=== PATIENT | female | born 1945 | race Caucasian/White ===

== ENCOUNTER 2016-04-30 19:59 | Emergency (ER) | payer OTHER ==
--- NOTE | ~2016-04-30 | CT4 ---
[facility] A Service [facility] RADIOLOGY TEXT RESULTS PATIENT: MICHELL DANG LOCATION: SED : 46 UNIT #: [id number] AGE: [address]: Nick Finnegan MD SEX: F ORDER DR: [id number] [address] [address] [id number] E MR#: [id number] Acc #: [id number] NAME: MICHELL DANG : 1945 SEX: F STUDY DATE/TIME: 04/30/2016 19:35 UNIT: SED ROOM: STUDY DESCRIPTION: CT Abd and Pelv Wo Cont Attending Physician: Nick Finnegan M.D. Ordering Physician: Marguerite Tatum M.D. Primary Care Physician: Chen Oliver M.D. MEDICAL IMAGING REPORT This report is preliminary unless electronic signature is present. EXAM CT abdomen and pelvis without contrast, 04/30/2016 HISTORY Right-side abdomen pain for 4 days. Nausea and vomiting. TECHNIQUE This CT exam was performed with one or more of the following radiation dose reduction techniques: automatic exposure control, adjustment of mA and/or kV according to patient size, and iterative reconstruction. FINDINGS CT abdomen and pelvis was performed without contrast. CT ABDOMEN: There is a large hiatal hernia with the majority of the stomach above the diaphragm. Bilateral adrenal adenomas measuring 1.1 cm x 0.9 on the right and 1.6 cm x 1.4 cm on the left. The liver, spleen, pancreas, and right kidney are unremarkable. Incidental approximately 1 cm cyst in the anterior mid-left kidney. Cholecystectomy. No bowel obstruction. No urinary obstruction. CT PELVIS: Hysterectomy. No pelvic mass or fluid collection. No bowel dilatation. Urinary bladder is normal. IMPRESSION 1. Large hiatal hernia with the majority of the stomach above the diaphragm. 2. No bowel obstruction or urinary obstruction. 3. Incidental bilateral adrenal adenomas measuring 1.1 cm in maximal dimension on the right and 2.4 cm on the left. 4. Normal appendix. [facility] A Service [facility] RADIOLOGY TEXT RESULTS PATIENT: MICHELL DANG LOCATION: [facility] : 46 UNIT #: [id number] AGE: [address]: Nick Finnegan MD SEX: F ORDER DR: Dictated by... Lawson Painter M.D. THIS IS AN ELECTRONICALLY VERIFIED REPORT Lawson Painter M.D. at 05/02/2016 12:26 PM ROSA/laci TD: 05/02/2016 01:45 JOB #: [id number] MEDICAL IMAGING REPORT
[2016-04-30 19:13] LABS: BASOPHIL% 0.5 % (0-2.5); EOSINOPHIL# 0.1 X10e3 (0-0.7); EOSINOPHIL% 1.5 % (0.0-7.0); HEMATOCRIT 45.8 % (35.0-45.0); HEMOGLOBIN 15.3 gm/dL (12.0-16.0); LYMPHOCYTE# 2.8 X10e3 (1.0-3.5); LYMPHOCYTE% 33.5 % (17.0-45.0); MEAN CELL VOLUME 89.8 FL (83-96); MEAN CORPUSCULAR HEMOGLOBIN 29.9 PG (28-34); MEAN CORPUSCULAR HGB CONC 33.3 g/dL (30-36); MEAN PLATELET VOLUME 8.1 FL (6.5-11.5); MONOCYTE# 0.4 X10e3 (0-1.0); MONOCYTE% 4.5 % (3.0-12.0); PLATELET COUNT 307 X10e3 (140-420); RED CELL DISTRIBUTION WIDTH 14.8 % (11.0-15.5); WHITE BLOOD COUNT 8.3 X10e3 (4.0-10.5)
[2016-04-30 19:14] LABS: DIFF IND NO
[2016-04-30 19:31] LABS: ALBUMIN SERUM 4.6 g/dL (3.5-5.0); ALKALINE PHOSPHATASE 66 U/L (32-92); ALT (SGPT) 16 U/L (10-40); AMYLASE 13 U/L (0-46); AST (SGOT) 25 U/L (10-42); BILIRUBIN, DIRECT <0.1 mg/dL (0.0-0.2); BILIRUBIN,INDIRECT 0.5 mg/dL (0.0-0.9); BILIRUBIN,TOTAL 0.6 mg/dL (0.2-2.0); BLOOD UREA NITROGEN 9 mg/dL (9-23); CALCIUM SERUM 9.6 mg/dL (8.4-10.2); CARBON DIOXIDE 29 mmol/L (22-31); CHLORIDE 102 mmol/L (100-111); GLOM FILT RATE Estimated 58.4 mL/min (>60); GLUCOSE FASTING 106 mg/dL (70-110); LIPASE 27 U/L (22-51); POTASSIUM 3.3 mmol/L (3.5-5.1); SODIUM 140 mmol/L (135-145)
[2016-04-30 19:33] LABS: URINE APPEARANCE CLEAR; URINE BILIRUBIN NEG (NEG); URINE BLOOD TRACE-INTACT (NEG); URINE COLOR YELLOW; URINE GLUCOSE NEG (NORM); URINE KETONE NEG (NEG); URINE LEUKOCYTE ESTERASE NEG (NEG); URINE NITRATE NEG (NEG); URINE PROTEIN NEG (NEG); URINE UROBILINOGEN 0.2 MG/DL (NORM)
[2016-04-30 19:34] LABS: MICRO INDICATED? YES; URINE SOURCE CLEAN CATCH
[2016-04-30 19:36] LABS: CULTURE INDICATED? NO; URINE BACTERIA NEG (NEG); URINE SQUAMOUS EPITHELIAL CELL OCCAS /[HPF]; URINE TRANSITIONAL EPI CELLS FEW /[HPF]; URINE WBC 0-2 /[HPF] (0-5)
[2016-04-30 19:37] LABS: URINE MUCUS PRESENT
[~2016-04-30 19:59] MED LIST: ALBUTEROL17 GM INH; BENZONATATE PO; COMPAZINE10 MG PR; COREG PO; CRESTOR PO; DEPAKOTE PO; DESYREL50 MG PO; FAMOTIDINE PO; GLUCOPHAGE500 MG PO; GUAIFENESIN LA600 M1 PO; MOTRIN400 M1 PO; OMEPRAZOLE20 M1 PO; PREDNISONE PO; RISPERIDONE PO; ROBITUSSIN100 MG/51 PO; SAPHRIS5 MG SL; SYMBICORT INH; SYNTHROID0.05 MG PO; ULTRAM PO; VIBRAMYCIN100 M1 PO; VITAMIN D 4001 UDTAB PO; ZESTORETIC 20/11 TA1 PO; ZESTORETIC 20/11 TAB PO; ZETIA PO; ZITHROMAX500 MG PO
== END 2016-04-30 20:43 | disposition home or self-care (01) ==
LOC: SED 19:59
PROVIDERS: Emergency Medicine; Student in an Organized Health Care Education/Training Program
DX: R10.9 Unspecified abdominal pain (principal); E11.9 Type 2 diabetes mellitus without complications; I10 Essential (primary) hypertension; Z90.710 Acquired absence of both cervix and uterus; Z88.0 Allergy status to penicillin; Z88.8 Allergy status to other drugs, medicaments and biological substances; F17.200 Nicotine dependence, unspecified, uncomplicated
CPT/HCPCS: 36415; 74176; 80048; 80076; 81003; 82150; 83690; 85025; 96361; 96374; 96375; 99284; C9113; J2270; J2405

== ENCOUNTER 2016-06-06 19:25 | Inpatient (IN) | payer OTHER ==
--- NOTE | ~2016-06-06 | HP ---
Unit #: [id number] #: [id number] Patient: MICHELL DANG [id number] [facility] [address] [place], [place] [address] [id number] E MR#: [id number] NAME: MICHELL DANG ROOM: Age: Sex: F Admission Date: 06/06/2016 : 1945 Attending Physician: Hector Jefferson M.D. Primary Care Physician: Chen Oliver M.D. HISTORY AND PHYSICAL CHIEF COMPLAINT Possible stroke. HISTORY OF PRESENT ILLNESS The patient is a 70-year-old female with past medical history of hypertension, hyperlipidemia, diabetes, hypothyroidism, GERD, schizophrenia, who presented to the emergency department for evaluation of the above. The patient states that she noticed that she was dropping things and having difficulty walking since she woke up this morning. Family noticed that she had abnormal speech and the facial drop around 1:30. Family called EMS. The patient was brought to the emergency department for further evaluation. In the emergency department a CT of the head was done and showed nothing acute. CT angiogram of the head and neck was done and showed no hemodynamically significant stenosis. She was a Code Stroke and has already been seen by Neurology. She was not thought to be a candidate for tPA as the last known normal time was unclear. She is being admitted to [facility] for evaluation and further treatment. PAST MEDICAL HISTORY 1. Admission to [facility] November 24-2013 for pneumonia and COPD exacerbation. 2. COPD, not on home oxygen. 3. Hypertension. 4. Hyperlipidemia. 5. GERD. 6. Diabetes. 7. Hypothyroidism. 8. Schizophrenia. PAST SURGICAL HISTORY 1. Hysterectomy. 2. . 3. Cholecystectomy. SOCIAL HISTORY The patient lives with her mother. 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 She smokes three packs of cigarettes daily. There is no alcohol use. She typically walks without assistance. Her code status is a Full Code. Unit #: [id number] #: [id number] Patient: MICHELL DANG FAMILY HISTORY Family history is notable for her dad dying of a myocardial infarction at the age of 53. Her mother is still living and is 93. ALLERGIES Penicillin, codeine, latex. HOME MEDICATIONS Home medications include Coreg, Synthroid, Glucophage, Depakote, Zetia, Zestoretic, guaifenesin, Symbicort, prednisone. Home medications will need to be reviewed and verified. REVIEW OF SYSTEMS A complete review of systems is negative except as indicated in the HPI. Family states that the patient has not reliably been taking her medications due to insurance reasons. She does not routinely check her blood sugars. DIAGNOSTIC STUDIES IMAGING: CT of the head showed nothing acute. CT angiogram of the head and neck showed no hemodynamically significant stenosis. LABORATORY: Complete blood count is completely normal. INR is 1. Troponin is less than 0.05. Basic metabolic panel notable for BUN and creatinine of 13 and 1.5 respectively. PHYSICAL EXAMINATION VITAL SIGNS: Temperature is 98.1. Pulse 64. Respirations 16. Blood pressure 166/89. GENERAL: The patient is a female who is awake and alert, in no acute distress. HEENT: The head is atraumatic. Mucous membranes are moist. NECK: Neck is supple. Trachea is midline. CARDIOVASCULAR: Regular rate and rhythm. LUNGS: Lungs are clear to auscultation bilaterally with no increased work of breathing. ABDOMEN: Abdomen is soft, nontender, with bowel sounds present in all four quadrants. EXTREMITIES: Nontender with no pedal edema. NEUROLOGIC: The patient is awake and alert. She is oriented x3. Speech is slurred. She does have a right facial droop. A right upper extremity pronator drift is present. PSYCHIATRIC: Mood and affect are normal. The patient is cooperative. SKIN: Skin of examined areas is warm and dry. ASSESSMENT The patient is a 70-year-old female with: 1. Right facial droop, right-sided weakness and abnormal speech, all concerning for cerebrovascular accident. She was a Code Stroke and is not a candidate for tPA. 2. Acute kidney injury: The patient's creatinine was 1 on April 30, 2016. It is 1.5 today. 3. Hypertension. 4. Hyperlipidemia. 5. Diabetes. Unit #: [id number] #: [id number] Patient: MICHELL DANG 6. Hypothyroidism. 7. Gastroesophageal reflux disease. 8. Schizophrenia. 9. Tobacco abuse. PLAN 1. Admit to intermediate level. 2. N.p.o. until speech evaluation. 3. Speech therapy to evaluate and treat. 4. Normal saline at 75 mL an hour. 5. Neuro checks. 6. MRI of the brain without contrast for further evaluation of possible stroke. 7. Strict protocol per neurology. 8. Consult Dr. Peralta regarding right facial droop. 9. Hemoglobin A1C. 10. Low dose sliding scale insulin with Accu-Cheks. 11. EKG and cardiac enzymes. 12. Check urinalysis. 13. Strict Is and Os. 14. TSH. 15. Repeat labs in the morning including INR. 16. SCDs for DVT prophylaxis. 17. Additional workup and consultants based on above. Dictated by Malathi Montez M.D. PEDRO/kristen TD: 06/06/2016 19:04 JOB #: [id number] HISTORY AND PHYSICAL Page 1 of 1 X Malathi Montez MD X HISTORY AND PHYSICAL
--- NOTE | ~2016-06-06 | CT18 ---
[facility] A Service of [facility] RADIOLOGY TEXT RESULTS PATIENT: MICHELL DANG LOCATION: [facility] 306- : 46 UNIT #: [id number] AGE: [address]: Henry Stephenson MD SEX: F ORDER DR: [id number] [facility] [address] [place], [place] [address] [id number] I MR#: [id number] Acc #: [id number] NAME: MICHELL DANG : 1945 SEX: F STUDY DATE/TIME: 06/06/2016 16:13 UNIT: [address] ROOM: [facility] STUDY DESCRIPTION: CT Angio Head Stroke Attending Physician: Malathi Montez M.D. Ordering Physician: Hector Jefferson M.D. Primary Care Physician: Chen Oliver M.D. MEDICAL IMAGING REPORT This report is preliminary unless electronic signature is present EXAM CT angio head stroke, 06/06/2016 HISTORY Right-sided weakness since noon today, slurred speech. FINDINGS Please see CT ANGIO NECK STROKE report for combined text results. Dictated by... Vinod Hamlin M.D. THIS IS AN ELECTRONICALLY VERIFIED REPORT Vinod Hamlin M.D. at 06/08/2016 3:03 PM CPR/psc TD: 06/06/2016 21:54 JOB #: [id number] MEDICAL IMAGING REPORT Page 1 of 1 COPY
--- NOTE | ~2016-06-06 | CT72 ---
[facility] A Service of [facility] & [facility] RADIOLOGY TEXT RESULTS PATIENT: MICHELL DANG LOCATION: A 306-01 : 46 UNIT #: [id number] AGE: [address]: Henry Stephenson MD SEX: F ORDER DR: [id number] [facility] [address] [place], [place] [address] [id number] I MR#: [id number] Acc #: [id number] NAME: MICHELL DANG : 1945 SEX: F STUDY DATE/TIME: 06/06/2016 16:08 UNIT: CEDOF ROOM: [id number] STUDY DESCRIPTION: CT Head Wo Contrast Stroke Attending Physician: Malathi Montez M.D. Ordering Physician: Hector Jefferson M.D. Primary Care Physician: Chen Oliver M.D. MEDICAL IMAGING REPORT This report is preliminary unless electronic signature is present EXAM CT head without IV contrast. COMPARISON STUDIES CT head dated August 16, 2006. INDICATIONS A 70-year-old female with right-sided weakness and slurred speech since 12:00 p.m. today. TECHNIQUE This CT exam was performed with one or more of the following radiation dose reduction techniques: automatic exposure control, adjustment of mA and/or kV according to patient size, and iterative reconstruction. FINDINGS Cerumen noted in the right external ear canal. Mastoid air cells, middle ears and visualized paranasal sinuses are well-aerated. There is thickening and mucosa of the right maxillary sinus, new from 2006. There is also new mild thickening of the left maxillary mucosa. There is mild cerebral and cerebellar volume loss. There is no abnormal extraaxial fluid collection. No acute intracranial hemorrhage. No mass effect. There is mild chronic-appearing small vessel ischemic change in the left insular white matter. No convincing evidence of acute ischemia on this exam. IMPRESSION 1. No acute intracranial abnormality. No evidence of acute intracranial hemorrhage or CT evidence of acute ischemia. If persistent concern, MRI is a more sensitive test for determining extent of ischemic change. 2. Grossly stable mild cerebral and cerebellar volume loss. Minimal [facility] A Service of [facility] & [facility] RADIOLOGY TEXT RESULTS PATIENT: MICHELL DANG LOCATION: [facility] 306-01 : 46 UNIT #: [id number] AGE: [address]: Henry Stephenson MD SEX: F ORDER DR: chronic small vessel ischemic change. 3. Bilateral maxillary mucosal thickening of uncertain acuity. No paranasal sinus air-fluid levels. Dictated by... Lonnie Mane M.D. THIS IS AN ELECTRONICALLY VERIFIED REPORT Lonnie Mane M.D. at 06/07/2016 5:29 PM OLIVIA/wilfredo TD: 06/06/2016 20:23 JOB #: [id number] MEDICAL IMAGING REPORT Page 1 of 1 COPY
--- NOTE | ~2016-06-06 | EKG ---
PATIENT: MICHELL DANG UNIT #: [id number] Ventricular Rate: 60 BPM Atrial Rate: 60 BPM P-R Interval: 186 ms QRS Duration: 82 ms Q-T Interval: 418 ms QTC Calculation(Bezet): 418 ms P Gaylord: 30 degrees Calculated R Gaylord: 27 degrees Calculated T Gaylord: 141 degrees Diagnosis Line: Normal sinus rhythm Diagnosis Line: Septal infarct (cited on or before 24-NOV-2013) Diagnosis Line: Abnormal ECG Diagnosis Line: When compared with ECG of 24-NOV-2013 19:58, Diagnosis Line: Nonspecific T wave abnormality now evident in Diagnosis Line: Anterior leads Diagnosis Line: Confirmed by LUIS HERMAN MD ([id number]) on 06/06/2016 Diagnosis Line: 10:37:18 PM INTERPRETING MD: BATSHEVA BAUER
--- NOTE | ~2016-06-06 | MR18 ---
[facility] A Service of [facility] RADIOLOGY TEXT RESULTS PATIENT: MICHELL DANG LOCATION: [facility] : 46 UNIT #: [id number] AGE: [address]: Henry Stephenson MD SEX: F ORDER DR: [id number] [facility] [address] [place], [place] [address] [id number] I MR#: [id number] Acc #: [id number] NAME: MICHELL DANG : 1945 SEX: F STUDY DATE/TIME: 06/06/2016 21:35 UNIT: [facility] PCU ROOM: [facility] STUDY DESCRIPTION: MR Brain Wo Contrast Attending Physician: Malathi Montez M.D. Ordering Physician: Physician Non-Staff Primary Care Physician: Chen Oliver M.D. MRI CENTER REPORT This report is preliminary unless electronic signature is present. EXAM Unenhanced brain MRI, 06/06/2016 PROCEDURE Routine unenhanced brain MRI. COMPARISON Head CT same date. CLINICAL HISTORY Right side weakness and facial droop since 01:30 a.m. Slurred speech and difficulty walking. FINDINGS There is a small area of acute ischemia in the left posterior limb internal capsule well positioned to cause right-side weakness. There is no hemorrhagic transformation. The lesion is only faintly if at all identifiable on FLAIR and T2 imaging. There is no other acute ischemia and there is no hemorrhage, mass or hydrocephalus. Bone marrow signal is normal. IMPRESSION Small area of acute ischemia in the posterior limb internal capsule, less than 1 cm in size, no other acute abnormality is seen. Minimal nonspecific white matter change. Dictated by... Jonas Ruiz M.D. THIS IS AN ELECTRONICALLY VERIFIED REPORT Jonas Ruiz M.D. at 06/08/2016 9:44 AM CASS/laci [facility] A Service of [facility] RADIOLOGY TEXT RESULTS PATIENT: MICHELL DANG LOCATION: [facility] : 46 UNIT #: [id number] AGE: [address]: Henry Stephenson MD SEX: F ORDER DR: TD: 06/07/2016 02:14 JOB #: [id number] MRI CENTER REPORT Page 1 of 1 COPY
--- NOTE | ~2016-06-06 | A ---
[facility] Nutrition Therapy DATE: 06/07/16 Patient: MICHELL DANG Physician: GRIS Address: [address] [place] [address] ROAD Room/Bed: [address] [place] [address], Zip: [place] [address] Admit Date: 06/06/16 Date of : 46 Height: 5 4 Weight: 177 80.6 NUTRITIONAL ASSESSMENT: REASON: DX 70 yo female admitted for possible CVA PMH: DM, HTN, HLD, COPD, GERD, schizophrenia, hypothyroid, PNA, cholecystectomy Anthropometrics: Ht: 64" Wt: 80.6 kg BMI: 30.5 Labs: Accuchecks 97-118 Trig 217 GFR 57.5 Meds: Lipitor, novolog I/O & Bowel function: 800/950, last BM 06/06 Skin Integrity: No breakdown noted Edema: none noted Diet: NPO Assessment: Chart reviewed, events noted. Pt admitted for possible CVA, with stroke protocol initiated. Per [facility] evaluation in chart, the pt is experiencing dysarthria and dysphagia. Pt is confused and lethargic, and the pt recommends that the pt remains NPO, and will reassess tomorrow. RD spoke with the pt's daughter at bedside, who states that the pt has not had any weight loss recently. Pt's daughter also reports that the pt cares for her 93 yo mother, and cooks, often. Pt apparently consumes ~2 meals per day, and eats "healthy" per her daughter's report. Pt was unable to provide any information d/t lethargy/ confusion. RD discussed the importance of adequate nutrient intake with the pt's daughter, and she voiced understanding. RD will follow up to further determine nutritional/ supplemental needs. Dx: Inadequate protein-energy intake RT dysphagia, Dx AEB [facility] evaluation, NPO status. Intervention: 1. NPO 2. [facility] Monitoring, Evaluation and Goals: 1. Oral intake; advance diet per [facility] recs, tolerate >50-75% meals if diet advanced 2. Labs; WNL 3. Weight; preserve lean body mass [facility] Nutrition Therapy DATE: 06/07/16 Patient: MICHELL DANG Physician: GRIS Address: [address] [place] [address] ROAD Room/Bed: [address] [place] [address], Zip: [place] [phone] Admit Date: 06/06/16 Date of : 46 Height: 5 4 Weight: 177 80.6 Recommendations: 1. Advance diet per [facility] recommendations when appropriate. If advanced to PO diet, please add consistent carbohydrate/ heart healthy dietary restrictions. 2. If the pt is unable to take nutrition PO, consider obtaining enteral access for supplemental nutrition. RD to follow. Pt is at moderate nutritional risk. RD will follow hospital course. Respectfully, EDUARDO GARZA RD, LD Food and Nutritional Services [facility] cc: client file
--- NOTE | ~2016-06-06 | CO ---
Unit #: [id number] #: [id number] Patient: LISA ÁLVAREZ [id number] [address] [place], [place] [address] [id number] I MR#: [id number] NAME: LISA ÁLVAREZ. ROOM: 306 Age: 70 Sex: F Admission Date: 06/06/2016 : 1945 Attending Physician: Henry Stephenson M.D. Primary Care Physician: Chen Oliver M.D. Consultation Date: 06/08/2016 CONSULTATION REPORT REASON FOR CONSULTATION Depression, anxiety. HISTORY OF PRESENT ILLNESS Ms. Lisa Álvarez is a 70-year-old white female seen in room 306, bed one on 06/08/16, with a possible history of schizophrenia. The patient was pleasant, cooperative, during interview, able to give coherent information. The patient reported that she was admitted because of stroke. The patient was admitted on June 06. The patient was sitting comfortably in recliner and eating her lunch, using her left hand. The patient reported weakness in right side after stroke. The patient's vital signs are 97.6, 69, 21, 46/89, oxygen saturation 98%. The patient reported a history of depression, anxiety, currently on no medication. The patient currently denied any suicidal or homicidal ideation. The patient denied any psychotic symptom but denied any history of schizophrenia but, according to the intake report, the patient has a history of schizophrenia. PAST PSYCHIATRIC HISTORY Remarkable for depression and anxiety. No known history of any schizophrenia but, according to intake report, history of schizophrenia. MEDICAL HISTORY History of hypertension, hyperlipidemia, diabetes mellitus type 2, hypothyroidism, hiatal hernia, gastroesophageal reflux disease, COPD. FAMILY HISTORY AND SOCIAL HISTORY The patient has a good support system. No history of abuse. No history of any substance abuse. ALLERGIES Penicillin, codeine, Lasix. MEDICATION 1. Doxycycline. 2. Combivent. 3. Symbicort. 4. Prednisone. 5. Mucinex. 6. Carvedilol. 7. Depakote. 8. Zetia. 9. Hydrochlorothiazide. 10. Synthroid. Unit #: [id number] #: [id number] Patient: LISA ÁLVAREZ 11. Zestril. 12. Protonix. REVIEW OF SYSTEMS A complete review of systems is remarkable for anxiety and, as-mentioned above. MENTAL STATUS EXAMINATION GENERAL APPEARANCE: Patient dressed in hospital attire. Able to answer questions slowly, noticed drooping of the right side and the weakness on the right side of the body. The patient was eating with her left hand. VITAL SIGNS: Please see above. ATTENTION SPAN AND CONCENTRATION: Fair. SPEECH: Regular rate, coherent. ORIENTATION: Oriented in time, place and person. MOOD AND AFFECT: Sad, dysphoric. THOUGHT PROCESS: Coherent. THOUGHT CONTENT: The patient denied any thoughts of harming self or others but reported feeling sad, depressed, denied any hallucination. RECENT AND REMOTE MEMORY: Fair. LANGUAGE: Intact. FUND OF KNOWLEDGE: Fair. INSIGHT AND JUDGMENT: Fair to slightly impaired. DIAGNOSIS PSYCHIATRIC: 1. Major depressive disorder, recurrent, severe, F33.2. 2. Anxiety disorder, NOS, F40.01. ASSESSMENT/PLAN 1. Supportive psychotherapy and psychoeducation provided to the patient. 2. Educated about benefits and side effects of medication and course and prognosis of illness. 3. Recommending at this time to start the patient with Vistaril 25 mg in the morning for anxiety and Remeron 15 mg at bedtime to improve appetite, sleep and for depressive symptom, anxiety symptom. We will continue to follow. Please feel free to call if any question, telephone number [phone]. Dictated by... Maurizio Olea M.D. MARIE/adryan TD: 06/09/2016 07:57 JOB #: [id number] Unit #: [id number] #: [id number] Patient: LISA ÁLVAREZ CONSULTATION REPORT Page 1 of 1 X Maurizio Olea MD CONSULTATION REPORT
--- NOTE | ~2016-06-06 | CO ---
Unit #: [id number] #: [id number] Patient: MICHELL DANG [id number] [facility] [address]. [place], [place] [address] [id number] MR#: [id number] NAME: MICHELL DANG. ROOM: 306 Age: 70 Sex: F Admission Date: 06/06/2016 : 1945 Attending Physician: Henry Stephenson M.D. Primary Care Physician: Chen Oliver M.D. Consultation Date: 06/06/2016 CONSULTATION REPORT REASON FOR CONSULT Code stroke protocol. PATIENT IDENTIFICATION This is a 70-year-old, right-handed, female evaluated in the ED T2 at [facility]. SOURCE OF INFORMATION Obtained from the patient, EMS, as well as the medical record. HISTORY OF PRESENT ILLNESS This 70-year-old, right-handed, female with a past medical history of diabetes mellitus type 2, hyperlipidemia, and hypothyroidism who presents to [facility] via EMS arrival as a code stroke. The patient presents with new onset slurred speech, facial droop, and focal right-sided weakness. A code stroke was called prior to arrival as EMS called about 6 minutes out and thus code stroke was activated. Originally, the patient's last known well was reported at noon and she was arrived here at 1600 hours. However, after the patient got here and we further questioned the patient in the CT scanner, she said that she was having trouble thinks out of her right hand when she woke up this morning. Apparently, a family member noted that she was abnormal at noon and then another family member noted that she was abnormal at 1:30, but true definitive last know well of noon is not entirely accurate. Thus, we felt as though she was unsafe from alteplase treatment and was outside the window from thrombectomy as well as she appears to have woken up with symptoms. On exam, her NIH is 6. She does have dysarthria, right facial weakness to the lower part of the face, right arm drift, and right leg drift. She has no sensory difficulties. No cortical signs. She states "it is hard to speak." Otherwise, she is oriented, alert, and able to follow commands. A CT scan of the head was negative for any acute intracranial abnormality. CT angiogram of the head and neck is still pending. It is being read by radiology currently. A quick view at CT scan appeared to show patent carotids in sycuan of Pineda, but that was only with a brief one-time viewing and, again, imaging is not available in DR as of yet and radiology report is pending. The patient was transported back to the ED. She is in T2 and she is on the monitor receiving stat per rectal aspirin and labs are pending and workup is pending. Patient is being now evaluated by the ED physician. Case discussed with Dr. Peralta in CT scan at the time of decision making and he agrees with decision making as her last known well is not clearly within the window for treatment. PAST MEDICAL HISTORY Unit #: [id number] #: [id number] Patient: MICHELL DANG 1. Hypertension. 2. Hyperlipidemia. 3. Diabetes mellitus type 2. 4. Hypothyroidism. 5. Hiatal hernia. 6. GERD. 7. Pneumonia in 2013. She was treated at this facility for pneumonia and COPD exacerbation. 8. Mood disorder, details unknown. 9. Laparoscopic cholecystectomy. 10. section x3. 11. Partial vaginal hysterectomy. ALLERGIES She has allergies that include penicillin, codeine, and Lasix. MEDICATIONS Home medications are being reconciled. She is not known to be on any antiplatelet or anticoagulating medications per the patient. Again, the medications are being reconciled. She was discharge in 2013 on doxycycline, Combivent, Symbicort, prednisone, Mucinex, carvedilol, Depakote, Zetia, hydrochlorothiazide, Synthroid, Zestril, and Protonix. FAMILY HISTORY Noncontributory to the presenting condition. SOCIAL HISTORY She has a history of tobacco use, 1 pack per day to 2 packs per day. No documentation of alcohol abuse or illicit drug use. REVIEW OF SYSTEMS Twelve-point review of systems attempted. Pertinent positives are as discussed above. Patient complains of facial weakness, dropping things in her right hand, trouble using her right leg, though no falls or trauma. She reports difficulty in ambulating and trouble speaking, thus she denies pain or trouble swallowing. She denies any vision changes, loss of consciousness, shortness of air, chest pain, abdominal pain, palpitations, nausea, vomiting, diarrhea, or any bruising or bleeding. Fourteen-point review of systems was done and pertinent positives are as discussed above. PHYSICAL EXAMINATION VITAL SIGNS: Temperature not yet documented, pulse 63, respirations 16, current blood pressure 144/97 (she was 170/90 per EMS en route and she was 160 systolic upon arrival), and oxygen saturation is 96%, height is last documented in the medical record as 5 feet, 4 inches, and her last documented weight is 182 pounds in April of 2016. Current weight is pending. NEUROLOGIC: She is on a stretcher in no apparent distress. She is awake, alert, and oriented to person, place, and time. She is oriented to events. She has no right/left confusion or finger agnosia. No aphasia or apraxia. She is dysarthric. CRANIAL NERVES: She demonstrates full little of vision. Eyes are conjugate without ptosis or nystagmus. Extraocular movements are intact. Pupils are 3+ and brisk. Sensation of the face and scalp is intact. Strength of muscles of facial expression does reveal moderate right lower facial weakness, not improved with smiling or using muscles of facial expression. Hearing is intact to voice and conversation. Tongue is midline. Uvula is midline. Palatal elevation is normal. Head turning Unit #: [id number] #: [id number] Patient: DANG,MICHELL A and shoulder shrug are unremarkable. Neck is supple. MOTOR: She demonstrates equal middle school director strength, but she has a clear, consistent recurrent drift of the right upper and right lower extremities compared to the left. She has full strength, 5/5, on the l. The drift is on the right and she has full strength on the left and this includes both upper and lower. SENSORY: Intact. She has no extinction or sensory abnormality noted on exam. GAIT/ROMBERG: Deferred. REFLEXES: 1/4. Toes are equivocal. COORDINATION: She does have a little bit of ataxia in the right upper extremity, possibly out of proportion to weakness, but questionable. She appears to have normal [id number], however, on the right and left lower extremities. DIAGNOSTIC STUDIES IMAGING: CT of the head: Please see above. CT angiogram of the head and neck is pending. LABORATORY: Troponin less 0.05. PT 10.4 and INR 1. White blood cell count 9.1, hemoglobin 13.4, hematocrit 40.4, and platelets 168. GFR greater than 60. Creatinine 0.[address] scan. IMPRESSION 1. New onset right-sided weakness, right facial droop, and dysarthria; possible new subcortical infarct. No cortical signs currently. Patient is outside the window for alteplase or thrombectomy at this time with last known well not entirely clear and she appears to have likely woken up with symptoms this morning. 2. Hypertension. 3. Hyperlipidemia. 4. Diabetes mellitus type 2. 5. Hypothyroidism. 6. Tobacco use. PLAN We have initiated stat aspirin per rectal. Recommend IV fluids. The chest x-ray is negative and she shows no signs of CHF on exam. CT of the head is negative. CT angiogram of the head and neck is pending, though on brief view in CT scan her carotids in sycuan of [place]ineda appear clear, but will await full review of imaging and radiology report. She is outside the window for thrombectomy at this point in time, regardless. Will initiate stroke workup and treat the patient for acute ischemic CVA. Will request MRI of the brain and will follow along with you closely. We thank you very much for allowing us to assist in the care of this patient. I have discussed the case with Dr. Peralta and he agrees with the above. Dictated by... Kadi PetersonPSabrinaRGuillermina. for Gino Grey/jada Unit #: [id number] #: [id number] Patient: MICHELL DANG TD: 06/07/2016 09:53 JOB #: [id number] CONSULTATION REPORT Page 1 of 1 X Yessica Garcia APRN X CONSULTATION REPORT
--- NOTE | ~2016-06-06 | DS ---
Unit #: [id number] #: [id number] Patient: MICHELL DANG [id number] [address] [place], [place] [address] [id number] MR#: [id number] NAME: MICHELL DANG. ROOM: 306 Age: 70 Sex: F Admission Date: 06/06/2016 : 1945 Discharge Date: 06/09/2016 Attending Physician: Henry Stephenson M.D. Primary Care Physician: Chen Oliver M.D. DISCHARGE SUMMARY ADMITTING DIAGNOSIS Stroke. FURTHER DIAGNOSES 1. History of hypertension. 2. Hyperlipidemia. 3. Diabetes mellitus. 4. Noncompliance with medication. 5. History of schizophrenia. CONSULTANTS 1. Dr. Peralta. 2. Dr. Olea. HISTORY OF PRESENTING ILLNESS Patient is a 70-year-old, lady with a past medical history of hypertension, hyperlipidemia, schizophrenia, and not taking her medications for the last 2 years. Presented to the emergency room with a chief complaint of right-sided marked deviation and weakness. HOSPITAL COURSE She was seen by neurology. She had the last known time of being good is unknown. She was thought not a candidate of TPA. 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 Her blood work was done. The blood work showed a LDL of high up to 200, triglycerides of 217, hemoglobin A1c came back at 5.6, TSH was 84.78, and she started on statins, Synthroid, and monitored in the hospital. She will be transferred to [facility] for further rehab. Dr. Olea saw her for depression and schizophrenia. He recommended to start her on Vistaril in the morning and Remeron at night at this point. I spoke with the patient and she is agreeable to go to the [facility]. PHYSICAL EXAMINATION On the day of the discharge, her physical examination: VITAL SIGNS: Temperature 98.9, pulse rate 64, respirations 18, and blood pressure 129/77. GENERAL APPEARANCE: Patient is alert and oriented x3. Lying in the bed. No acute distress. HEENT: Normocephalic and atraumatic. No icterus. PERRLA. Extraocular movements intact. NECK: Supple. No JVD. HEART: S1 and S2 bradycardic. CHEST: Bilateral equal air entry. Clear to auscultation. ABDOMEN: Soft and nontender. Unit #: [id number] #: [id number] Patient: MICHELL DANG EXTREMITIES: No edema. Normal pulses. She does have right-sided weakness. DISCHARGE MEDICATIONS 1. Remeron 50 mg at bedtime. 2. Zetia 10 mg daily. 3. Vistaril 25 mg in the morning. 4. Lipitor 80 mg at bedtime. 5. Hydralazine 25 mg p.o. q.6 hours. 6. Synthroid 25 mcg p.o. every day. 7. Aspirin 325 mg p.o. every day. DISCHARGE INSTRUCTIONS She is instructed to follow up with endocrinology as an outpatient for her hypothyroidism. Kindly note her TSH was 84 to start up with. She is instructed to get a repeat TSH done in 6-8 weeks. Total time on her discharge: 28 minutes. Dictated by... Gino Hughes/jada TD: 06/09/2016 12:23 JOB #: [id number] DISCHARGE SUMMARY Page 1 of 1 X X DISCHARGE SUMMARY
--- NOTE | ~2016-06-06 | CT24 ---
[facility] A Service of [facility] RADIOLOGY TEXT RESULTS PATIENT: MICHELL DANG LOCATION: [facility] 306- : 46 UNIT #: [id number] AGE: [address]: Henry Stephenson MD SEX: F ORDER DR: [id number] [facility] [address] [place], [place] [address] [id number] I MR#: [id number] Acc #: [id number] NAME: MICHELL DANG : 1945 SEX: F STUDY DATE/TIME: 06/06/2016 16:13 UNIT: [address] ROOM: [facility] STUDY DESCRIPTION: CT Angio Neck Stroke Attending Physician: Malathi Montez M.D. Ordering Physician: Hector Jefferson M.D. Primary Care Physician: Chen Oliver M.D. MEDICAL IMAGING REPORT This report is preliminary unless electronic signature is present EXAM CT angiogram of the head and neck with contrast dated 06/06/2016. COMPARISON CT head without contrast dated 06/06/2016. HISTORY Right-sided weakness since noon today, slurred speech. FINDINGS CT angiogram of the head and neck was obtained with IV contrast in the axial plane followed by reformats of the chinik of Pineda in all three planes. Tumbling 3-D MIP images and surface-rendered images of the chinik of [place]ined[place] were obtained in a separate workstation. Curved reformats of bilateral carotid and vertebral arteries of the neck were performed. This CT exam was performed with one or more of the following radiation dose reduction techniques: Automatic exposure control, adjustment of mA and/or kV according to patient size, and iterative reconstruction. NECK: Three-vessel aortic arch is seen. Mild atherosclerotic plaque is seen in the arch and in the proximal left subclavian artery. Bilateral common carotid arteries, internal and external carotid arteries demonstrate expected course, caliber and flow. Vertebral arteries are codominant. No focal significant stenosis, dissection or aneurysm is seen. No hemodynamically flow-limiting significant stenosis in bilateral internal carotid artery bulbs per NASCET criteria. HEAD: Bilateral intracranial internal carotid arteries, anterior cerebral arteries and middle cerebral arteries demonstrate mild atherosclerotic plaque in the cavernous right ICA. Bilateral anterior cerebral arteries, small ACom and bilateral middle cerebral arteries are grossly unremarkable. Tiny ACom is seen but well defined PComms are not seen. [facility]. [facility] A Service of [facility] & [facility] RADIOLOGY TEXT RESULTS PATIENT: MICHELL DANG LOCATION: [facility] 306-01 : [birth year] UNIT #: [id number] AGE: [address]: Henry Stephenson MD SEX: F ORDER DR: Basilar artery, bilateral posterior cerebral arteries are within normal limits. The vertebral arteries demonstrate decreased caliber as they extend towards the vertebrobasilar junction after the takeoff of bilateral PICA, likely a congenital appearance. Dural venous sinuses are patent without filling defects to suggest thrombosis. Scattered atelectatic changes are in the lungs bilaterally. S-shaped nasal septal deviation is seen with a prominent left-sided component. Paranasal sinus disease is seen. Degenerative changes are in the cervical spine. There is diffuse fatty infiltration of bilateral parotid glands. No significant lymphadenopathy is seen. IMPRESSION 1. No hemodynamically flow-limiting significant stenosis in bilateral internal carotid artery bulbs per NASCET criteria. 2. No dissection, aneurysm or AVM in the head or neck. Dictated by... Vinod Hamlin M.D. THIS IS AN ELECTRONICALLY VERIFIED REPORT Vinod Hamlin M.D. at 06/08/2016 3:02 PM CPR/psc TD: 06/06/2016 21:51 JOB #: [id number] MEDICAL IMAGING REPORT Page 1 of 1 COPY
[2016-06-06 16:31] LABS: POC - CREATININE 0.95 mg/dL (0.44-1.03); POC - GFR >60.0 mL/min (>60)
[2016-06-06 16:33] LABS: BASOPHIL# 0.1 X10e3 (0-0.3); BASOPHIL% 0.9 % (0-2.5); EOSINOPHIL# 0.1 X10e3 (0-0.7); EOSINOPHIL% 1.3 % (0.0-7.0); HEMATOCRIT 40.4 % (35.0-45.0); HEMOGLOBIN 13.4 gm/dL (12.0-16.0); LYMPHOCYTE# 3.9 X10e3 (1.0-3.5); LYMPHOCYTE% 42.8 % (17.0-45.0); MEAN CELL VOLUME 90.3 FL (83-96); MEAN CORPUSCULAR HGB CONC 33.2 g/dL (30-36); MEAN PLATELET VOLUME 8.7 FL (6.5-11.5); MONOCYTE# 0.4 X10e3 (0-1.0); MONOCYTE% 4.8 % (3.0-12.0); NEUTROPHIL# 4.6 X10e3 (1.5-7.1); NEUTROPHIL% 50.2 % (40-75); PLATELET COUNT 258 X10e3 (140-420); RED BLOOD COUNT 4.47 X10e (3.90-5.30); RED CELL DISTRIBUTION WIDTH 14.2 % (11.0-15.5); WHITE BLOOD COUNT 9.1 X10e3 (4.0-10.5)
[2016-06-06 16:35] LABS: DIFF IND NO
[2016-06-06 16:44] LABS: PROTHROMBIN TIME (PATIENT) 10.4 SECONDS (9.6-11.5)
[2016-06-06 16:50] LABS: POC - CKMB 3.4 ng/mL (0.0-7.9); POC - TROPONIN <0.05 ng/mL (<=0.05)
[2016-06-06 17:06] LABS: BUN/CREATININE RATIO 8.66; CALCIUM SERUM 9.2 mg/dL (8.4-10.2); CREATININE SERUM 1.5 mg/dL (0.6-1.4); GLOM FILT RATE Estimated 35.2 mL/min (>60); POTASSIUM 3.6 mmol/L (3.5-5.1)
[2016-06-06 19:44] LABS: URINE SOURCE CLEAN CATCH
[2016-06-06 19:57] LABS: URINE APPEARANCE CLEAR; URINE BILIRUBIN NEG (NEG); URINE BLOOD NEG (NEG); URINE COLOR YELLOW; URINE GLUCOSE NEG (NEG); URINE KETONE NEG (NEG); URINE LEUKOCYTE ESTERASE NEG (NEG); URINE NITRATE NEG (NEG); URINE PROTEIN NEG (NEG); URINE SPECIFIC GRAVITY 1.013 (1.003-1.035); URINE UROBILINOGEN 0.2 MG/DL (NEG)
[2016-06-06 20:19] LABS: BASOPHIL# 0.1 X10e3 (0-0.3); EOSINOPHIL# 0.1 X10e3 (0-0.7); HEMATOCRIT 43.6 % (35.0-45.0); HEMOGLOBIN 14.6 gm/dL (12.0-16.0); LYMPHOCYTE# 3.9 X10e3 (1.0-3.5); LYMPHOCYTE% 42.3 % (17.0-45.0); MEAN CELL VOLUME 89.3 FL (83-96); MEAN CORPUSCULAR HEMOGLOBIN 29.9 PG (28-34); MEAN CORPUSCULAR HGB CONC 33.5 g/dL (30-36); MEAN PLATELET VOLUME 8.4 FL (6.5-11.5); MONOCYTE# 0.3 X10e3 (0-1.0); MONOCYTE% 3.4 % (3.0-12.0); NEUTROPHIL# 4.8 X10e3 (1.5-7.1); NEUTROPHIL% 52.3 % (40-75); PLATELET COUNT 289 X10e3 (140-420); RED BLOOD COUNT 4.88 X10e (3.90-5.30); RED CELL DISTRIBUTION WIDTH 14.7 % (11.0-15.5); WHITE BLOOD COUNT 9.1 X10e3 (4.0-10.5)
[2016-06-06 20:22] LABS: DIFF IND NO
[2016-06-06 20:55] LABS: ALBUMIN SERUM 4.2 g/dL (3.5-5.0); BILIRUBIN,TOTAL 0.4 mg/dL (0.2-2.0); BUN/CREATININE RATIO 10.83; CALCIUM SERUM 9.6 mg/dL (8.4-10.2); CREATININE SERUM 1.2 mg/dL (0.6-1.4); GLOM FILT RATE Estimated 46.1 mL/min (>60); POTASSIUM 4.1 mmol/L (3.5-5.1); PROTEIN TOTAL SERUM 6.8 g/dL (6.0-8.3)
[2016-06-06 21:07] LABS: %MB 2.5 % (0.0-4.0); MB 8.7 ng/ml
[2016-06-07 03:13] LABS: BASOPHIL# 0.1 X10e3 (0-0.3); BASOPHIL% 0.9 % (0-2.5); EOSINOPHIL# 0.1 X10e3 (0-0.7); EOSINOPHIL% 1.2 % (0.0-7.0); HEMATOCRIT 43.2 % (35.0-45.0); HEMOGLOBIN 14.5 gm/dL (12.0-16.0); LYMPHOCYTE# 4.2 X10e3 (1.0-3.5); LYMPHOCYTE% 41.9 % (17.0-45.0); MEAN CELL VOLUME 89.2 FL (83-96); MEAN CORPUSCULAR HGB CONC 33.6 g/dL (30-36); MEAN PLATELET VOLUME 8.3 FL (6.5-11.5); MONOCYTE# 0.5 X10e3 (0-1.0); MONOCYTE% 5.1 % (3.0-12.0); NEUTROPHIL# 5.1 X10e3 (1.5-7.1); NEUTROPHIL% 50.9 % (40-75); PLATELET COUNT 285 X10e3 (140-420); RED BLOOD COUNT 4.84 X10e (3.90-5.30); RED CELL DISTRIBUTION WIDTH 14.4 % (11.0-15.5); WHITE BLOOD COUNT 10.1 X10e3 (4.0-10.5)
[2016-06-07 03:16] LABS: DIFF IND NO
[2016-06-07 03:50] LABS: ALBUMIN SERUM 3.9 g/dL (3.5-5.0); BILIRUBIN,TOTAL 0.7 mg/dL (0.2-2.0); CALCIUM SERUM 9.5 mg/dL (8.4-10.2); GLOM FILT RATE Estimated 57.5 mL/min (>60); POTASSIUM 4.2 mmol/L (3.5-5.1); PROTEIN TOTAL SERUM 6.7 g/dL (6.0-8.3)
[2016-06-07 03:54] LABS: %MB 2.1 % (0.0-4.0); MB 8.2 ng/ml
[2016-06-07 04:05] LABS: PROTHROMBIN TIME (PATIENT) 10.1 SECONDS (9.6-11.5)
[2016-06-08 04:31] LABS: HEMATOCRIT 44.5 % (35.0-45.0); HEMOGLOBIN 14.5 gm/dL (12.0-16.0); MEAN CORPUSCULAR HEMOGLOBIN 29.7 PG (28-34); MEAN CORPUSCULAR HGB CONC 32.6 g/dL (30-36); MEAN PLATELET VOLUME 8.7 FL (6.5-11.5); RED BLOOD COUNT 4.89 X10e (3.90-5.30); RED CELL DISTRIBUTION WIDTH 14.4 % (11.0-15.5); WHITE BLOOD COUNT 7.9 X10e3 (4.0-10.5)
[2016-06-08 04:53] LABS: BUN/CREATININE RATIO 12.85; CALCIUM SERUM 8.6 mg/dL (8.4-10.2); CREATININE SERUM 0.7 mg/dL (0.6-1.4); GLOM FILT RATE Estimated 88.4 mL/min (>60); POTASSIUM 3.4 mmol/L (3.5-5.1)
[2016-06-09 07:20] LABS: BUN/CREATININE RATIO 11.42; CREATININE SERUM 0.7 mg/dL (0.6-1.4); GLOM FILT RATE Estimated 88.4 mL/min (>60); MAGNESIUM 2.1 mg/dL (1.6-3.0); POTASSIUM 3.8 mmol/L (3.5-5.1)
[2016-06-09 08:33] LABS: HEMATOCRIT 42.9 % (35.0-45.0); HEMOGLOBIN 14.6 gm/dL (12.0-16.0); MEAN CELL VOLUME 89.1 FL (83-96); MEAN CORPUSCULAR HEMOGLOBIN 30.2 PG (28-34); MEAN CORPUSCULAR HGB CONC 33.9 g/dL (30-36); MEAN PLATELET VOLUME 8.5 FL (6.5-11.5); RED BLOOD COUNT 4.82 X10e (3.90-5.30); RED CELL DISTRIBUTION WIDTH 14.5 % (11.0-15.5); WHITE BLOOD COUNT 7.7 X10e3 (4.0-10.5)
== END 2016-06-09 15:34 | DRG 65 ==
LOC: CED 19:25 → CEDOF 19:26 → C3A PCU 20:59
PROVIDERS: Emergency Medicine; Family Medicine; Internal Medicine
DX: I63.332 Cerebral infarction due to thrombosis of left posterior cerebral artery (principal); G81.91 Hemiplegia, unspecified affecting right dominant side; N17.9 Acute kidney failure, unspecified; F33.2 Major depressive disorder, recurrent severe without psychotic features; R47.1 Dysarthria and anarthria; R13.10 Dysphagia, unspecified; I10 Essential (primary) hypertension; R29.706 NIHSS score 6; Z88.0 Allergy status to penicillin; Z88.5 Allergy status to narcotic agent; Z91.040 Latex allergy status; E11.9 Type 2 diabetes mellitus without complications; E78.5 Hyperlipidemia, unspecified; E03.9 Hypothyroidism, unspecified; K44.9 Diaphragmatic hernia without obstruction or gangrene; K21.9 Gastro-esophageal reflux disease without esophagitis; F39 Unspecified mood [affective] disorder; J44.9 Chronic obstructive pulmonary disease, unspecified; Z90.49 Acquired absence of other specified parts of digestive tract; Z90.710 Acquired absence of both cervix and uterus; F17.210 Nicotine dependence, cigarettes, uncomplicated; Z91.14 Patient's other noncompliance with medication regimen; F20.9 Schizophrenia, unspecified; F41.9 Anxiety disorder, unspecified; Z79.84 Long term (current) use of oral hypoglycemic drugs; Z79.52 Long term (current) use of systemic steroids
CPT/HCPCS: 36415; 70450; 70496; 70498; 70551; 80048; 80053; 80061; 81003; 82550; 82553; 82565; 82947; 83036; 83735; 84443; 84484; 85025; 85027; 85610; 85730; 86140; 87086; 92526; 92610; 93005; 93306; 94760; 96360; 96361; 97110; 97116; 97163; 97165; 97530; 99291; G8978-GP; G8979-GP; G8980-GP; G8987-GO; G8988-GO; G8996-GN; G8997-GN; Q9967